=== PATIENT | male | born 1940 | race Caucasian/White ===

== ENCOUNTER 2020-01-12 18:45 | Emergency (ER) | payer OTHER ==
[~2020-01-12] VITALS: Ht 170.2 cm; Wt 77.1 kg
[~2020-01-12 18:45] MED LIST: ATORVASTATIN CA10 MG PO; COZAAR100 MG; GLIPIZIDE10 MG PO; KOMBIGLYZE XR1 EAC1 PO; PERCOCET 5/3251 TAB PO; POLY119PG PO; PREVACID30 MG PO; SURFAK240 M1 PO; ZANTAC150 M1
== END 2020-01-12 21:05 | disposition home or self-care (01) ==
LOC: ER 18:45
DX: S61.221A Laceration with foreign body of left index finger without damage to nail, initial encounter (principal); W27.1XXA Contact with garden tool, initial encounter; Y93.89 Activity, other specified; Y92.89 Other specified places as the place of occurrence of the external cause; Y99.8 Other external cause status

== ENCOUNTER 2020-01-18 11:45 | Inpatient (IN) | payer OTHER ==
[~2020-01-18] VITALS: Ht 170.2 cm; Wt 77.1 kg
[2020-01-18] MEDS ORDERED: PEPCID AC20 MG (12:00)
[2020-01-18] MEDS ORDERED: LANTUS SOL100 UNIT/1 (12:00)
[2020-01-28] MEDS ORDERED: [UNRECOGNIZED DRUG - OTHER] PO (12:00)
== END 2020-01-28 14:40 | disposition home or self-care (01) | DRG 603 ==
LOC: ER 11:45 → MEDI 16:58 → MEDJ 01-20 15:36 → MEDI 01-20 15:41 → MEDJ 01-20 15:42 → MEDI 01-25 02:14
PROVIDERS: ADMIT Internal Medicine
PROC: 3E0F7GC Introduction of Other Therapeutic Substance into Respiratory Tract, Via Natural or Artificial Opening (ICD-10-PCS; 2020-01-18)
PROC: BW28ZZZ Computerized Tomography (CT Scan) of Head (ICD-10-PCS; 2020-01-22)
PROC: BP3DY0Z Magnetic Resonance Imaging (MRI) of Left Hand/Finger Joint using Other Contrast, Unenhanced and Enhanced (ICD-10-PCS; principal; 2020-01-25)
DX: L03.114 Cellulitis of left upper limb (principal); J44.1 Chronic obstructive pulmonary disease with (acute) exacerbation; E11.65 Type 2 diabetes mellitus with hyperglycemia; L95.8 Other vasculitis limited to the skin; I10 Essential (primary) hypertension; Z79.4 Long term (current) use of insulin

== ENCOUNTER 2020-03-29 18:07 | Emergency (ER) | payer OTHER ==
[~2020-03-29] VITALS: Ht 172.7 cm; Wt 77.1 kg
[~2020-03-29 18:07] MED LIST changes: +LANTUS SOL100 UNIT/1; +PEPCID AC20 MG; +[UNRECOGNIZED DRUG - OTHER] PO
[2020-03-29] MEDS ORDERED: GLIMEPIRIDE4 MG (18:15)
[2020-03-29] MEDS ORDERED: LANTUS SOL100 UNIT/1 (18:15)
[2020-03-29] MEDS ORDERED: SINGULAIR 10MG10 MG (18:15)
[2020-03-29] MEDS ORDERED: TAMS0.4C (18:16)
== END 2020-03-29 21:49 | disposition home or self-care (01) ==
LOC: ER 18:07
DX: R33.8 Other retention of urine (principal)

== ENCOUNTER 2020-12-19 14:24 | Emergency (ER) | payer OTHER ==
[~2020-12-19] VITALS: Ht 170.2 cm; Wt 79.8 kg
[~2020-12-19 14:24] MED LIST changes: +GLIMEPIRIDE4 MG; +SINGULAIR 10MG10 MG; +TAMS0.4C
[2020-12-19] MEDS ORDERED: MUPIROCIN1 G1 TOP (15:36)
[2020-12-19] MEDS ORDERED: LEVOFLOXACIN500 MG PO (15:36)
== END 2020-12-19 15:47 | disposition home or self-care (01) ==
LOC: ER 14:24
DX: S50.811A Abrasion of right forearm, initial encounter (principal); W22.8XXA Striking against or struck by other objects, initial encounter; Y93.89 Activity, other specified; Y92.018 Other place in single-family (private) house as the place of occurrence of the external cause; Y99.8 Other external cause status

== ENCOUNTER 2021-11-02 20:39 | Emergency (ER) | payer OTHER ==
[~2021-11-02] VITALS: Ht 172.7 cm; Wt 77.1 kg
[~2021-11-02 20:39] MED LIST changes: +LEVOFLOXACIN500 MG PO; +MUPIROCIN1 G1 TOP
== END 2021-11-03 01:57 | disposition home or self-care (01) ==
LOC: ER 20:39
DX: U07.1 COVID-19 (principal); B34.9 Viral infection, unspecified

== ENCOUNTER 2022-01-13 07:29 | Outpatient (CLI) | payer OTHER | END 2022-01-13 07:30 | disposition home or self-care (01) | LOC: NUCLEAR 07:29 | PROVIDERS: ATTEND Internal Medicine Gastroenterology | DX: K30 Functional dyspepsia (principal) | CPT/HCPCS: 78264; A9541 ==

== ENCOUNTER 2022-09-02 21:16 | Inpatient (IN) | payer OTHER ==
[~2022-09-02] VITALS: Ht 170.2 cm; Wt 76.2 kg
[2022-09-07] MEDS ORDERED: CIPRO500 MG PO (10:09)
== END 2022-09-07 13:50 | disposition home or self-care (01) | DRG 390 ==
LOC: ER 21:16 → MEDJ 09-03 13:10
PROVIDERS: ADMIT Internal Medicine; ATTEND Internal Medicine
PROC: 02HV33Z Insertion of Infusion Device into Superior Vena Cava, Percutaneous Approach (ICD-10-PCS; principal; 2022-09-04)
DX: K56.690 Other partial intestinal obstruction (principal); R10.32 Left lower quadrant pain; E86.0 Dehydration; I10 Essential (primary) hypertension; J44.9 Chronic obstructive pulmonary disease, unspecified; E11.9 Type 2 diabetes mellitus without complications

== ENCOUNTER 2023-07-13 07:03 | Outpatient (CLI) | payer OTHER ==
[~2023-07-13 07:03] MED LIST changes: +CIPRO500 MG PO
== END 2023-07-13 07:04 | disposition home or self-care (01) ==
LOC: NUCLEAR 07:03
PROVIDERS: ATTEND Internal Medicine
DX: K31.84 Gastroparesis (principal)
CPT/HCPCS: 78264; A9541

== ENCOUNTER 2024-10-29 11:05 | Outpatient (CLI) | payer OTHER | END 2024-10-29 11:06 | disposition home or self-care (01) | LOC: NUCLEAR 11:05 | PROVIDERS: ATTEND Internal Medicine | DX: I87.2 Venous insufficiency (chronic) (peripheral) (principal) ==

== ENCOUNTER 2024-12-18 09:16 | Outpatient (CLI) | payer OTHER | END 2024-12-18 09:18 | disposition home or self-care (01) | LOC: SONOGRAMA 09:16 | PROVIDERS: ATTEND Internal Medicine Gastroenterology | DX: R10.13 Epigastric pain (principal) ==

== ENCOUNTER 2025-04-11 07:11 | Outpatient (CLI) | payer OTHER ==
[2025-04-11 08:23] LABS: BASO % 0.5 % (0.1-1.2); EOS # 0.24 (0.04-0.54); EOS % 4.2 % (0.7-7.0); HEMATOCRIT 35.8 % (40.1-51.0); HEMOGLOBIN 12.2 g/dL (13.7-17.5); LYMPH % 13.9 % (19.3-53.1); MEAN CORPUSCULAR HEMOGLOBIN 29.4 pg (25.6-32.2); MONO # 0.55 (0.24-0.82); MONO % 9.5 % (4.7-12.5); NEUT # 4.13 (1.56-6.13); NEUT % 71.6 % (34.0-71.1); PLATELET COUNT 188 K/uL (163-369); RED BLOOD COUNT 4.15 M/uL (4.63-6.08); RED CELL DISTRIBUTION WIDTH 13.8 % (11.6-14.4)
[2025-04-11 08:26] LABS: URINE APPEARANCE Clear; URINE BILIRRUBIN Negative (NEGATIVE); URINE BLOOD Negative; URINE COLOR Yellow; URINE GLUCOSE Negative (NEGATIVE); URINE KETONE Negative (NEGATIVE); URINE LEUKOCYTE Negative; URINE NITRATE Negative; URINE PROTEIN Negative (NEGATIVE); URINE UROBILINOGEN 0.2 E.U./dl
[2025-04-11 08:30] LABS: URINE EPITHELIAL CELLS 1.5 uL (0.0-38.8)
[2025-04-11 08:45] LABS: URINE BACTERIA 2.4 uL (0.0-1933); URINE RBC 1.9 uL (0.0-20.8); URINE WBC 1.1 uL (0.0-23.2)
[2025-04-11 09:33] LABS: ALBUMIN 3.5 gm/dL (3.4-5.0); BILIRUBIN TOTAL 0.48 mg/dL (0.3-1.2); CALCIUM 9.2 mg/dL (8.5-10.1); CHOL HDL RATIO 3.8 (0-5.0); CREATININE SERUM 1.15 mg/dL (0.70-1.30); GFR 60.73; GLOBULINA 3.5 G/DL (2.4-3.5); POTASSIUM 4.17 mEq/L (3.5-5.1)
== END 2025-04-11 07:16 | disposition home or self-care (01) ==
LOC: LAB 07:11
PROVIDERS: ATTEND Internal Medicine
DX: D64.9 Anemia, unspecified (principal); E11.9 Type 2 diabetes mellitus without complications; E78.2 Mixed hyperlipidemia; N39.0 Urinary tract infection, site not specified

== ENCOUNTER 2025-04-11 07:34 | Outpatient (CLI) | payer OTHER | END 2025-04-11 07:50 | disposition home or self-care (01) | LOC: TOM 07:34 | PROVIDERS: ATTEND Internal Medicine | DX: J44.1 Chronic obstructive pulmonary disease with (acute) exacerbation (principal); R10.9 Unspecified abdominal pain ==

== ENCOUNTER 2025-07-05 15:32 | Emergency (ER) | payer OTHER ==
[~2025-07-05] VITALS: Ht 172.7 cm; Wt 78.0 kg
[2025-07-05] MEDS ORDERED: SINGULAIR10 MG PO (15:58)
[2025-07-05] MEDS ORDERED: TAMS0.4C PO (15:58)
[2025-07-05] MEDS ORDERED: LIPITOR20 MG PO (15:58)
[2025-07-05] MEDS ORDERED: GLIPIZIDE XL10 MG PO (15:58)
[2025-07-05] MEDS ORDERED: ELIGARD7.5 MG SQ (15:59)
[2025-07-05] MEDS ORDERED: GUAIFENESIN/DEXTROMETHORPHAN 100MG/10ML BLIST.PACK PO ONE (19:15)
[2025-07-05] MEDS ORDERED: MAG HYDROX/ALUMINUM HYD/SIMETH 30 ML BLIST.PACK PO ONE (19:15)
[2025-07-05] MEDS ORDERED: LIDOCAINE HCL 120 ML ML MM ONE (19:15)
[2025-07-05] MEDS ORDERED: LEVALBUTEROL HCL 1.25 MG/3 ML SOLUTION IH ONE (19:15)
[2025-07-05] MEDS ORDERED: IPRATROPIUM BROMIDE 0.5 MG/2.5 ML AMPUL.NEB IH ONE (19:15)
[2025-07-05 19:32] LABS: BASO % 0.4 % (0.1-1.2); EOS # 0.17 (0.04-0.54); EOS % 3.1 % (0.7-7.0); LYMPH # 0.76 (1.18-3.74); LYMPH % 13.8 % (19.3-53.1); MEAN PLATELET VOLUME 9.40 fl (9.4-12.4); MONO # 0.64 (0.24-0.82); MONO % 11.7 % (4.7-12.5); NEUT # 3.88 (1.56-6.13); NEUT % 70.6 % (34.0-71.1); RED CELL DISTRIBUTION WIDTH 13.5 % (11.6-14.4)
[2025-07-05 20:00] LABS: BUN CREA RATIO 15.0 (7.0-25.0); COVID-19 AG NEGATIVE (NEGATIVE); CREATININE SERUM 1.21 mg/dL (0.70-1.30); GFR 57.27; GLUCOSE FASTING 157.0 mg/dL (65-100); OSMOLALITY SERUM 292.0 MOSM/KG (275-295)
[2025-07-05] MEDS ORDERED: DIABETIC TUSSI118 M3 PO (21:28)
[2025-07-05] MEDS ORDERED: XOPENEX CO1.25 MG/0. IH (21:28)
[2025-07-05] MEDS ORDERED: CARAFATE1 GM PO (21:28)
[2025-07-05] MEDS ORDERED: ZITHROMAX500 MG PO (21:28)
[2025-07-05] MEDS ORDERED: IPRATROPIU0.2 MG/1 M IH (21:28)
[2025-07-05] MEDS ORDERED: BENZONATATE 100 MG CAPSULE PO ONE (21:30)
[2025-07-05] MEDS ORDERED: FAMOTIDINE/PF 20 MG/2 ML VIAL IV ONE (21:30)
== END 2025-07-05 21:50 ==
LOC: ER 15:32
PROVIDERS: Preventive Medicine Public Health & General Preventive Medicine
DX: J00 Acute nasopharyngitis [common cold] (principal); R05.9 Cough, unspecified; Z20.822 Contact with and (suspected) exposure to COVID-19; I10 Essential (primary) hypertension; E11.9 Type 2 diabetes mellitus without complications; Z79.4 Long term (current) use of insulin; Z88.0 Allergy status to penicillin
CPT/HCPCS: 36415; 71046; 96365; 99283; J3490